=== PATIENT | male | born 1960 | race Two or more races ===

== ENCOUNTER 2017-06-02 12:55 | Emergency (ER) | payer MEDICAID ==
[~2017-06-02] VITALS: Ht 172.7 cm; Wt 81.2 kg
[2017-06-02 13:18] VITALS: BP 133/83
== END 2017-06-02 13:34 | disposition home or self-care (01) ==
LOC: ER 12:55
DX: H92.02 Otalgia, left ear (principal); Z88.0 Allergy status to penicillin; Z88.6 Allergy status to analgesic agent

== ENCOUNTER → 2019-01-05 | Outpatient (CLI) | payer MEDICAID | END | disposition home or self-care (01) | LOC: Rad HDHVI 12:46 | PROVIDERS: ATTEND Internal Medicine | DX: R07.89 Other chest pain (principal); R42 Dizziness and giddiness; I10 Essential (primary) hypertension | CPT/HCPCS: 93306; 93880 ==